=== PATIENT | male | born 1950 | race Caucasian/White ===

== ENCOUNTER 2018-10-12 08:23 | Inpatient (IN) | payer MEDICARE, OTHER, MEDICAID ==
[2018-10-12 08:40] LABS: ADD MAN DIFF? NO
[2018-10-12 08:41] LABS: WHITE BLOOD COUNT 14.9 10^3/ul (4.8-10.8)
[2018-10-12 08:41] LABS: BASOPHILS % 0.1 % (0.0-2.0); HEMATOCRIT 35.2 % (42.0-52.0); HEMOGLOBIN 11.6 g/dl (14.0-18.0); LYMPHOCYTES # 0.7 10^3/ul (0.8-2.9); LYMPHOCYTES % 4.8 % (15.0-51.0); MEAN CORPUSCULAR HEMOGLOBIN 21.6 pg (29.0-33.0); MEAN CORPUSCULAR VOLUME 65.5 fl (82.0-101.0); MEAN PLATELET VOLUME 10.2 fl (7.4-10.4); MONOCYTE # 1.1 10^3/ul (0.3-0.9); MONOCYTES % 7.4 % (0.0-11.0); NEUTROPHILS % 87.2 % (39.0-77.0); PLATELET COUNT 222 10^3/UL (140-415); RED BLOOD COUNT 5.37 10^6/ul (4.70-6.10); RED CELL DISTRIBUTION WIDTH 17.8 % (11.5-14.5)
[2018-10-12 09:02] LABS: INR 1.08; PARTIAL THROMBOPLASTIN TIME 28.2 Sec (23.0-35.0); PROTIME 14.1 Sec (11.9-14.9); PT RATIO 1.1
[2018-10-12] MEDS: ONDANSETRON 4 MG INJ IV (09:02)
[2018-10-12] MEDS: morphine 4 MG/ML VIAL IV (09:02)
[2018-10-12 09:05] LABS: ANION GAP 13 (5-13); BLOOD UREA NITROGEN 15 mg/dl (7-20); CALCIUM 9.1 mg/dl (8.4-10.2); CARBON DIOXIDE 25 mmol/L (21-31); CHLORIDE 98 mmol/L (97-110); CREATININE 0.61 mg/dl (0.61-1.24); Estimated GFR > 60 mL/min (>60); GLUCOSE 205 mg/dl (70-220); POTASSIUM 4.6 mmol/L (3.5-5.1); SODIUM 136 mmol/L (135-144)
[2018-10-12 09:16] LABS: TROPONIN-I 0.022 ng/ml (0.000-0.120)
[2018-10-12 09:52] LABS: ADD UMIC YES; UR ASCORBIC ACID NEGATIVE (NEGATIVE); UR BILIRUBIN (Dip) NEGATIVE (NEGATIVE); UR BLOOD (Dip) NEGATIVE (NEGATIVE); UR CLARITY CLEAR (CLEAR); UR COLOR YELLOW (YELLOW); UR GLUCOSE (Dip) NEGATIVE (NEGATIVE); UR KETONES (Dip) NEGATIVE (NEGATIVE); UR LEUKOCYTE ESTERASE (Dip) NEGATIVE Leu/ul (NEGATIVE); UR NITRITE (Dip) NEGATIVE (NEGATIVE); UR RBC 1 /HPF (0-5); UR SPECIFIC GRAVITY (Dip) 1.008 (1.003-1.030); UR TOTAL PROTEIN (Dip) 1+ mg/dl (NEGATIVE); UR UROBILINOGEN (Dip) NEGATIVE (NEGATIVE); UR WBC 0 /HPF (0-5)
[2018-10-12] MEDS: HYDROmorphONE 2 MG/ML SYG IV (10:02)
[2018-10-12] MEDS ORDERED: ACETAMINOPHEN 325 MG TAB PO (10:30)
[2018-10-12] MEDS ORDERED: ONDANSETRON 4 MG INJ IV (10:30)
[2018-10-12] MEDS: LORAZEPAM 2 MG INJ IV (10:45)
[2018-10-12] MEDS: ALBUTEROL/IPRATROPIUM (NEB) 3 ML AMP HHN (11:14)
[2018-10-12 11:24] LABS: ALANINE AMINOTRANSFERASE < 6 IU/L (13-69); ALBUMIN 4.6 g/dl (3.3-4.9); ALKALINE PHOSPHATASE 93 IU/L (42-121); ASPARTATE AMINO TRANSFERASE 77 IU/L (15-46); BILIRUBIN,INDIRECT 1.1 mg/dl (0-1.1); BILIRUBIN,TOTAL 1.1 mg/dl (0.2-1.3); TOTAL PROTEIN 8.2 g/dl (6.1-8.1)
[2018-10-12] MEDS: ACCU-CHEK XX ×3 (11:30→21:00)
[2018-10-12] MEDS ORDERED: GLUCAGON 1 MG INJ IM (12:30)
[2018-10-12] MEDS ORDERED: GLUCOSE GEL 15 GRAM TUBE PO ×2 (12:30)
[2018-10-12] MEDS ORDERED: GLUCOSE GEL 15 GRAM TUBE BUCCAL (12:30)
[2018-10-12] MEDS ORDERED: DEXTROSE 50% 50 ML SYRINGE IV ×2 (12:30)
[2018-10-12 14:38] LABS: LACTIC ACID 1.1 mmol/L (0.5-2.0)
[2018-10-12] MEDS ORDERED: DEXTROSE 5%-0.45% NACL 500 ML IV (15:30)
[2018-10-12] MEDS: DEXTROSE 5%-0.45% NACL 1,000 ML IV (15:53)
[2018-10-12] MEDS: INSULIN ASPART [NOVOLOG] 3 ML PEN SC ×3 (16:09→21:00)
[2018-10-12] MEDS: metFORMIN 500 MG TAB PO (18:00)
[2018-10-12] MEDS: ENALAPRILAT 1.25 MG INJ IV (20:35)
[2018-10-12] MEDS: FLUTICASONE 0.05% 16 GM NAS SPRAY NASAL (20:48)
[2018-10-12] MEDS: DOCUSATE SODIUM 100 MG CAP PO (21:00)
[2018-10-12] MEDS: AMLODIPINE 5 MG TAB PO (21:00)
[2018-10-12] MEDS: ATORVASTATIN 20 MG TAB PO (21:00)
[2018-10-12] MEDS: GEMFIBROZIL 600 MG TAB PO (21:00)
[2018-10-12] MEDS: MIRTAZAPINE 15 MG TAB PO (21:00)
[2018-10-12] MEDS: TAMSULOSIN (SR) 0.4 MG CAP PO (21:00)
[2018-10-12] MEDS: IOHEXOL 300MG/ML 150 ML BTL (21:24)
[2018-10-12] MEDS: SOD CHLORIDE 0.9% 100 ML (21:24)
[2018-10-12] MEDS: morphine 2 MG INJ IV (23:13)
[2018-10-13] MEDS: ACCU-CHEK XX ×5 (02:00→21:00)
[2018-10-13] MEDS: ENALAPRILAT 1.25 MG INJ IV ×4 (03:18→18:20)
[2018-10-13] MEDS: morphine 2 MG INJ IV ×3 (05:05→22:04)
[2018-10-13 05:41] LABS: ADD MAN DIFF? NO
[2018-10-13 05:54] LABS: BASOPHILS % 0.1 % (0.0-2.0); HEMATOCRIT 31.5 % (42.0-52.0); HEMOGLOBIN 10.6 g/dl (14.0-18.0); LYMPHOCYTES # 0.9 10^3/ul (0.8-2.9); LYMPHOCYTES % 8.3 % (15.0-51.0); MEAN CORPUSCULAR HEMOGLOBIN 21.8 pg (29.0-33.0); MEAN CORPUSCULAR HGB CONC 33.7 g/dl (32.0-37.0); MEAN CORPUSCULAR VOLUME 64.7 fl (82.0-101.0); MEAN PLATELET VOLUME 10.5 fl (7.4-10.4); MONOCYTE # 0.9 10^3/ul (0.3-0.9); MONOCYTES % 7.8 % (0.0-11.0); NEUTROPHIL # 9.1 10^3/ul (1.6-7.5); NEUTROPHILS % 83.4 % (39.0-77.0); PLATELET COUNT 194 10^3/UL (140-415); RED BLOOD COUNT 4.87 10^6/ul (4.70-6.10); RED CELL DISTRIBUTION WIDTH 17.4 % (11.5-14.5)
[2018-10-13 05:54] LABS: WHITE BLOOD COUNT 10.9 10^3/ul (4.8-10.8)
[2018-10-13 06:12] LABS: ANION GAP 12 (5-13); BLOOD UREA NITROGEN 17 mg/dl (7-20); CALCIUM 9.1 mg/dl (8.4-10.2); CARBON DIOXIDE 30 mmol/L (21-31); CHLORIDE 92 mmol/L (97-110); CREATININE 0.61 mg/dl (0.61-1.24); Estimated GFR > 60 mL/min (>60); GLUCOSE 201 mg/dl (70-220); MAGNESIUM 1.6 mg/dl (1.7-2.5); PHOSPHORUS 3.4 mg/dl (2.5-4.9); POTASSIUM 3.4 mmol/L (3.5-5.1); SODIUM 134 mmol/L (135-144)
[2018-10-13] MEDS: PANTOPRAZOLE (EC) 40 MG TAB PO (06:20)
[2018-10-13] MEDS: metFORMIN 500 MG TAB PO ×2 (08:00→18:00)
[2018-10-13] MEDS: ASPIRIN 81 MG TAB PO (08:07)
[2018-10-13] MEDS: DONEPEZIL 10 MG TAB PO (08:07)
[2018-10-13] MEDS: DOCUSATE SODIUM 100 MG CAP PO ×2 (08:07→21:00)
[2018-10-13] MEDS: DUTASTERIDE 0.5 MG CAP PO (08:07)
[2018-10-13] MEDS: FLUTICASONE/VILANTEROL 100-25 INH (08:07)
[2018-10-13] MEDS: GEMFIBROZIL 600 MG TAB PO ×2 (08:08→21:00)
[2018-10-13] MEDS: BENAZEPRIL 5 MG TAB PO (08:08)
[2018-10-13] MEDS: LINAGLIPTIN 5 MG TABLET PO (08:08)
[2018-10-13] MEDS: ASCORBIC ACID 500 MG TAB PO (08:08)
[2018-10-13] MEDS: BUPROPION (XL) 150 MG TAB PO (08:08)
[2018-10-13] MEDS: AMITRIPTYLINE 25 MG TAB PO (08:08)
[2018-10-13] MEDS: FOLIC ACID 1 MG TAB PO (08:08)
[2018-10-13] MEDS: AMLODIPINE 5 MG TAB PO ×2 (08:08→21:00)
[2018-10-13] MEDS: BETAMETHASONE/CLOTRIMAZOLE 15 GM CR TOP (08:09)
[2018-10-13] MEDS: INSULIN ASPART [NOVOLOG] 3 ML PEN SC ×5 (08:36→22:24)
[2018-10-13] MEDS: FLUTICASONE 0.05% 16 GM NAS SPRAY NASAL ×2 (08:37→21:52)
[2018-10-13] MEDS ORDERED: MAGNESIUM SULFATE 2 GM/50 ML 50 ML IVPB (09:00)
[2018-10-13] MEDS: POTASSIUM CHLORIDE 100 ML IVPB (10:46)
[2018-10-13] MEDS: NICOTINE (21 MG/24 HR) PATCH TRANSDERM (10:46)
[2018-10-13 11:01] LABS: AMMONIA 17 umol/l (9-30)
[2018-10-13] MEDS ORDERED: VANCOMYCIN IV PER PHARMACY XX (11:30)
[2018-10-13] MEDS ORDERED: ENALAPRILAT 1.25 MG INJ (13:40)
[2018-10-13] MEDS: MAGNESIUM SULFATE 3 GM in DEXTROSE 5% 100 ML IVPB (13:43)
[2018-10-13] MEDS: DEXTROSE 5%-0.45% NACL 1,000 ML IV (13:46)
[2018-10-13] MEDS: CLONIDINE 0.1 MG/24 HR PATCH TRANSDERM (15:49)
[2018-10-13] MEDS: ENOXAPARIN 40 MG/0.4 ML SYG SC (15:55)
[2018-10-13] MEDS: VANCOMYCIN 1.5 GM in SOD CHLORIDE 0.9% 250 ML IVPB (18:20)
[2018-10-13] MEDS: TAMSULOSIN (SR) 0.4 MG CAP PO (21:00)
[2018-10-13] MEDS: ATORVASTATIN 20 MG TAB PO (21:00)
[2018-10-13] MEDS: MIRTAZAPINE 15 MG TAB PO (21:00)
[2018-10-13] MEDS: INSULIN GLARGINE [LANTus] (100 UNITS/ML) SYG SC (22:26)
[2018-10-14] MEDS: ENALAPRILAT 1.25 MG INJ IV ×4 (00:13→17:24)
[2018-10-14] MEDS: ACCU-CHEK XX ×5 (02:00→20:56)
[2018-10-14] MEDS: INSULIN ASPART [NOVOLOG] 3 ML PEN SC ×6 (02:20→20:56)
[2018-10-14] MEDS: VANCOMYCIN 1 GM 250 ML IVPB ×2 (04:04→14:58)
[2018-10-14] MEDS: morphine 2 MG INJ IV ×2 (04:10→14:48)
[2018-10-14 06:06] LABS: ADD MAN DIFF? NO
[2018-10-14 06:09] LABS: WHITE BLOOD COUNT 10.5 10^3/ul (4.8-10.8)
[2018-10-14 06:09] LABS: BASOPHILS % 0.1 % (0.0-2.0); HEMATOCRIT 33.5 % (42.0-52.0); LYMPHOCYTES # 0.8 10^3/ul (0.8-2.9); LYMPHOCYTES % 7.1 % (15.0-51.0); MEAN CORPUSCULAR HEMOGLOBIN 21.4 pg (29.0-33.0); MEAN CORPUSCULAR HGB CONC 32.8 g/dl (32.0-37.0); MEAN CORPUSCULAR VOLUME 65.3 fl (82.0-101.0); MEAN PLATELET VOLUME 10.4 fl (7.4-10.4); MONOCYTE # 0.9 10^3/ul (0.3-0.9); MONOCYTES % 8.8 % (0.0-11.0); NEUTROPHIL # 8.8 10^3/ul (1.6-7.5); NEUTROPHILS % 83.7 % (39.0-77.0); PLATELET COUNT 208 10^3/UL (140-415); RED BLOOD COUNT 5.13 10^6/ul (4.70-6.10); RED CELL DISTRIBUTION WIDTH 17.1 % (11.5-14.5)
[2018-10-14] MEDS: PANTOPRAZOLE (EC) 40 MG TAB PO ×2 (07:00→08:43)
[2018-10-14 07:05] LABS: ANION GAP 12 (5-13); BLOOD UREA NITROGEN 21 mg/dl (7-20); CALCIUM 8.8 mg/dl (8.4-10.2); CARBON DIOXIDE 31 mmol/L (21-31); CHLORIDE 91 mmol/L (97-110); CREATININE 0.64 mg/dl (0.61-1.24); Estimated GFR > 60 mL/min (>60); GLUCOSE 219 mg/dl (70-220); MAGNESIUM 1.9 mg/dl (1.7-2.5); PHOSPHORUS 2.8 mg/dl (2.5-4.9); POTASSIUM 3.2 mmol/L (3.5-5.1); SODIUM 134 mmol/L (135-144)
[2018-10-14] MEDS: metFORMIN 500 MG TAB PO ×3 (07:40→17:24)
[2018-10-14] MEDS: FLUTICASONE/VILANTEROL 100-25 INH (07:40)
[2018-10-14] MEDS: DUTASTERIDE 0.5 MG CAP PO ×2 (07:41→08:43)
[2018-10-14] MEDS: DOCUSATE SODIUM 100 MG CAP PO ×3 (07:41→21:06)
[2018-10-14] MEDS: AMITRIPTYLINE 25 MG TAB PO ×2 (07:41→08:45)
[2018-10-14] MEDS: DONEPEZIL 10 MG TAB PO ×2 (07:41→08:43)
[2018-10-14] MEDS: FOLIC ACID 1 MG TAB PO ×2 (07:41→08:43)
[2018-10-14] MEDS: GEMFIBROZIL 600 MG TAB PO ×3 (07:41→21:06)
[2018-10-14] MEDS: ASPIRIN 81 MG TAB PO ×2 (07:41→08:43)
[2018-10-14] MEDS: BUPROPION (XL) 150 MG TAB PO ×2 (07:42→08:43)
[2018-10-14] MEDS: AMLODIPINE 5 MG TAB PO ×3 (07:42→20:14)
[2018-10-14] MEDS: ASCORBIC ACID 500 MG TAB PO ×2 (07:42→08:43)
[2018-10-14] MEDS: BENAZEPRIL 5 MG TAB PO ×2 (07:42→08:43)
[2018-10-14] MEDS: LINAGLIPTIN 5 MG TABLET PO ×2 (07:42→08:44)
[2018-10-14] MEDS: NICOTINE (21 MG/24 HR) PATCH TRANSDERM (08:40)
[2018-10-14] MEDS: FLUTICASONE 0.05% 16 GM NAS SPRAY NASAL ×2 (08:45→21:06)
[2018-10-14] MEDS: BETAMETHASONE/CLOTRIMAZOLE 15 GM CR TOP (08:45)
[2018-10-14] MEDS: ENOXAPARIN 40 MG/0.4 ML SYG SC (08:53)
[2018-10-14] MEDS: POTASSIUM CHLORIDE 100 ML IVPB (09:43)
[2018-10-14] MEDS: DEXTROSE 5%-0.45% NACL 1,000 ML IV (14:59)
[2018-10-14] MEDS: MIRTAZAPINE 15 MG TAB PO (20:14)
[2018-10-14] MEDS: HYDROCODONE/APAP (5/325) TAB PO (20:15)
[2018-10-14] MEDS: INSULIN GLARGINE [LANTus] (100 UNITS/ML) SYG SC (20:51)
[2018-10-14] MEDS: TAMSULOSIN (SR) 0.4 MG CAP PO (21:06)
[2018-10-14] MEDS: ATORVASTATIN 20 MG TAB PO (21:06)
[2018-10-14] MEDS: MELATONIN 5 MG TABLET PO (23:00)
[2018-10-15] MEDS ORDERED: NA BICARBONATE 8.4% 50 ML SYG
[2018-10-15] MEDS ORDERED: EPINEPHrine 0.1 MG/ML SYG
[2018-10-15] MEDS: ENALAPRILAT 1.25 MG INJ IV ×2 (00:41→05:32)
[2018-10-15] MEDS: QUETIAPINE 25 MG TAB PO (00:42)
[2018-10-15] MEDS: ACCU-CHEK XX (02:22)
[2018-10-15] MEDS: HYDROCODONE/APAP (5/325) TAB PO (02:24)
[2018-10-15 03:03] LABS: ADD MAN DIFF? NO
[2018-10-15 03:04] LABS: BASOPHILS % 0.2 % (0.0-2.0); HEMATOCRIT 36.3 % (42.0-52.0); HEMOGLOBIN 11.7 g/dl (14.0-18.0); LYMPHOCYTES # 0.8 10^3/ul (0.8-2.9); LYMPHOCYTES % 6.1 % (15.0-51.0); MEAN CORPUSCULAR HEMOGLOBIN 21.4 pg (29.0-33.0); MEAN CORPUSCULAR HGB CONC 32.2 g/dl (32.0-37.0); MEAN CORPUSCULAR VOLUME 66.4 fl (82.0-101.0); MEAN PLATELET VOLUME 10.1 fl (7.4-10.4); MONOCYTE # 1.4 10^3/ul (0.3-0.9); NEUTROPHIL # 10.2 10^3/ul (1.6-7.5); NEUTROPHILS % 82.2 % (39.0-77.0); PLATELET COUNT 211 10^3/UL (140-415); RED BLOOD COUNT 5.47 10^6/ul (4.70-6.10); RED CELL DISTRIBUTION WIDTH 17.2 % (11.5-14.5)
[2018-10-15 03:04] LABS: WHITE BLOOD COUNT 12.4 10^3/ul (4.8-10.8)
[2018-10-15 03:26] LABS: ANION GAP 13 (5-13); BLOOD UREA NITROGEN 28 mg/dl (7-20); CALCIUM 9.2 mg/dl (8.4-10.2); CARBON DIOXIDE 35 mmol/L (21-31); CHLORIDE 92 mmol/L (97-110); CREATININE 0.66 mg/dl (0.61-1.24); Estimated GFR > 60 mL/min (>60); GLUCOSE 221 mg/dl (70-220); PHOSPHORUS 3.2 mg/dl (2.5-4.9); POTASSIUM 3.4 mmol/L (3.5-5.1); SODIUM 140 mmol/L (135-144)
[2018-10-15 03:38] LABS: VANCOMYCIN,TROUGH 8.3 ug/ml (10.0-20.0)
[2018-10-15] MEDS: VANCOMYCIN 1.5 GM in SOD CHLORIDE 0.9% 250 ML IVPB (04:06)
== END 2018-10-15 06:14 | disposition expired | DRG 535 ==
LOC: 6WM 10-13 00:08 → E/R 08:23 → 6WM 10:23
PROVIDERS: Internal Medicine
PROC: 0BH17EZ Insertion of Endotracheal Airway into Trachea, Via Natural or Artificial Opening (ICD-10-PCS; principal; 2018-10-15)
DX: S72.001A Fracture of unspecified part of neck of right femur, initial encounter for closed fracture (principal); G92 Toxic encephalopathy; I63.9 Cerebral infarction, unspecified; C34.90 Malignant neoplasm of unspecified part of unspecified bronchus or lung; C79.70 Secondary malignant neoplasm of unspecified adrenal gland; R65.10 Systemic inflammatory response syndrome (SIRS) of non-infectious origin without acute organ dysfunction; E87.1 Hypo-osmolality and hyponatremia; Z79.899 Other long term (current) drug therapy; I25.10 Atherosclerotic heart disease of native coronary artery without angina pectoris; I10 Essential (primary) hypertension; N40.0 Benign prostatic hyperplasia without lower urinary tract symptoms; E78.5 Hyperlipidemia, unspecified; K21.9 Gastro-esophageal reflux disease without esophagitis; F32.9 Major depressive disorder, single episode, unspecified; M54.9 Dorsalgia, unspecified; G89.29 Other chronic pain; E11.40 Type 2 diabetes mellitus with diabetic neuropathy, unspecified; D64.9 Anemia, unspecified; Y92.009 Unspecified place in unspecified non-institutional (private) residence as the place of occurrence of the external cause; Z95.0 Presence of cardiac pacemaker; I70.0 Atherosclerosis of aorta; E87.6 Hypokalemia; E83.42 Hypomagnesemia; J44.9 Chronic obstructive pulmonary disease, unspecified; I46.9 Cardiac arrest, cause unspecified; M19.90 Unspecified osteoarthritis, unspecified site
CPT/HCPCS: 31500; 36415; 70450; 70470; 71045; 73510; 80048; 80076; 80202; 81001; 82140; 82962; 83605; 83735; 84100; 84484; 85025; 85610; 85730; 87040; 87086; 92526; 92610; 92950; 93005; 93306; 94664; 96374; 96375; 99291-25